=== PATIENT | female | born 1955 | race Caucasian/White ===

== ENCOUNTER → 2017-11-25 | Outpatient (CLI) | payer OTHER ==
--- NOTE | 2017-11-28 12:47 | MM ---
Reason for exam: screening (asymptomatic). Last mammogram was performed 1 year and 2 months ago. History: Patient is postmenopausal. Family history of premenopausal breast cancer in mother at age 47 and breast cancer in aunt. Took progesterone for 20 years 7 months. Physical Findings: A clinical breast exam by your physician is recommended on an annual basis and results should be correlated with mammographic findings. MG Screening Mammo w CAD Bilateral CC and MLO view(s) were taken. Prior study comparison: September 16, 2016, bilateral MG screening mammo w CAD. August 28, 2015, bilateral MG screening mammo w CAD. There are scattered fibroglandular densities. Finding: There are typically benign calcifications in both breasts. ASSESSMENT: Incomplete: need additional imaging evaluation, BI-RAD 0 RECOMMENDATION: Special view mammogram and ultrasound of the left breast. [facility] will attempt to contact patient to return for supplemental views and ultrasound.
== END | disposition home or self-care (01) ==
LOC: RADMAMWWP 13:06
PROVIDERS: ATTEND Family Medicine
DX: Z12.31 Encounter for screening mammogram for malignant neoplasm of breast (principal)
CPT/HCPCS: 77067

== ENCOUNTER → 2017-11-30 | Outpatient (CLI) | payer OTHER ==
--- NOTE | 2017-11-30 14:53 | MM ---
Reason for exam: additional evaluation requested from abnormal screening. Last mammogram was performed less than 1 month ago. History: Patient is postmenopausal. Family history of breast cancer in aunt, premenopausal breast cancer in mother at age 47, and breast cancer in grandmother. Took progesterone for 20 years 7 months. Physical Findings: Nurse did not find any significant physical abnormalities on exam. MG 3D Work Up W/Cad LT Spot compression CC, spot compression MLO, and ML view(s) were taken of the left breast. Prior study comparison: November 25, 2017, bilateral MG screening mammo w CAD. September 16, 2016, bilateral MG screening mammo w CAD. There is no discrete abnormality including area of concern. These results were verbally communicated with the patient and result sheet given to the patient on 11/30/17. ASSESSMENT: Incomplete: need additional imaging evaluation, BI-RAD 0 RECOMMENDATION: Ultrasound of the left breast.
--- NOTE | 2017-11-30 14:54 | USB ---
Reason for exam: additional evaluation requested from abnormal screening. History: Patient is postmenopausal. Family history of breast cancer in aunt, premenopausal breast cancer in mother at age 47, and breast cancer in grandmother. Took progesterone for 20 years 7 months. US Breast Workup Limited LT Left breast ultrasound demonstrates no cystic or solid lesion seen. These results were verbally communicated with the patient and result sheet given to the patient on 11/30/17. ASSESSMENT: Negative, BI-RAD 1 RECOMMENDATION: Return to routine screening mammogram schedule for both breasts. Manage patient on a clinical basis.
== END | disposition home or self-care (01) ==
LOC: RADMAMWWP 13:16
PROVIDERS: ATTEND Family Medicine
DX: R92.8 Other abnormal and inconclusive findings on diagnostic imaging of breast (principal)
CPT/HCPCS: 77065; 76642; G0279

== ENCOUNTER → 2018-12-14 | Outpatient (CLI) | payer OTHER ==
--- NOTE | 2018-12-14 16:53 | BD ---
EXAMINATION TYPE: Axial Bone Density DATE OF EXAM: 12/14/2018 CLINICAL HISTORY: Height: 66 inches Weight: 240 FRAX RISK QUESTIONS: Alcohol (3 or more units per day): no Family History (Parent hip fracture): pelvis bones Glucocorticoids (More than 3mos): no (Ex: prednisone, prednisolone, methylprednisolone, dexamethasone, and hydrocortisone). History of Fracture in Adulthood: yes: foot, left elbow, both wrists, hands Secondary Osteoporosis: 1. Type 1 Diabetes: no, type II 2. Hyperthyroidism: no 3. Menopause before 45: no 4. Malnutrition: no 5. Chronic liver disease: no Rheumatoid Arthritis: no Current Tobacco Use: no RISK FACTORS HISTORY OF: History of Wrist Fracture: yes, both When: age about 34 for left & right wrist in 1994 Surgery to Wrist (left): yes, for carpal tunnel Family History of Osteoporosis: yes, mother Active: yes Diet low in dairy products/other sources of calcium: no Postmenopausal woman: yes Take estrogen and/or progesterone medications: not now How long: progesterone about 20 years Lost more than 2 inches in height since high school: no Frequent falls: no Poor Health: no Hyperparathyroidism: no Adrenal Insufficiency: no MEDICATIONS: Prednisone or other steroids: no Thyroid Medications: yes Which medication: Levothyroxine How Long: over 20 years Osteoporosis Medications: no Additional Medications: insulin , blood pressure med, Metformin Additional History: stroke 2017 EXAM MEASUREMENTS: Bone mineral densitometry was performed using the [email or web address] System. Bone mineral density as measured about the Lumbar spine is: ----- L1-L4(G/cm2): 1.095 T Score Values are as follows: ----- L2: -0.5 ----- L3: -1.0 ----- L4: -0.9 ----- L1-L4: -0.7 Bone mineral density BASELINE Bone mineral density about the R hip (g/cm2): 0.726 Bone mineral density about the L hip (g/cm2): 0.737 T Score values are as follows: -----R Neck: -2.2 -----L Neck: -2.2 -----R Total: -0.9 -----L Total: -0.8 Bone mineral density BASELINE IMPRESSION: Osteopenia (T Score between -2.5 and -1). There is slightly increased risk of fracture and the patient may be considered for treatment. Re-Screen 2-5 years. NOTE: T-SCORE=SD OF THE YOUNG ADULT MEAN.
--- NOTE | 2018-12-17 15:41 | MM ---
Reason for exam: screening (asymptomatic). Last mammogram was performed 1 year ago. History: Patient is postmenopausal. Family history of breast cancer in aunt, premenopausal breast cancer in mother at age 47, and breast cancer in grandmother. Took progesterone for 20 years 7 months. MG Screening Mammo w CAD Bilateral CC and MLO view(s) were taken. Prior study comparison: November 30, 2017, left breast MG 3d work up w/cad LT. November 25, 2017, bilateral MG screening mammo w CAD. There are scattered fibroglandular densities. No significant changes when compared with prior studies. ASSESSMENT: Benign, BI-RAD 2 RECOMMENDATION: Routine screening mammogram of both breasts in 1 year.
== END | disposition home or self-care (01) ==
LOC: RADBDWWP 12:05
PROVIDERS: ATTEND Family Medicine
DX: Z12.31 Encounter for screening mammogram for malignant neoplasm of breast (principal); M85.851 Other specified disorders of bone density and structure, right thigh; M85.852 Other specified disorders of bone density and structure, left thigh; M85.88 Other specified disorders of bone density and structure, other site; Z78.0 Asymptomatic menopausal state
CPT/HCPCS: 77067; 77080

== ENCOUNTER → 2020-01-02 | Outpatient (CLI) | payer OTHER ==
--- NOTE | 2020-01-03 12:07 | MM ---
Reason for exam: screening (asymptomatic). Last mammogram was performed 1 year and 1 month ago. History: Patient is postmenopausal. Family history of breast cancer in aunt, premenopausal breast cancer in mother at age 47, and breast cancer in grandmother. Took progesterone for 20 years 7 months. Physical Findings: A clinical breast exam by your physician is recommended on an annual basis and results should be correlated with mammographic findings. MG Screening Mammo w CAD Bilateral CC and MLO view(s) were taken. Prior study comparison: December 14, 2018, bilateral MG screening mammo w CAD. November 30, 2017, left breast MG 3d work up w/cad LT. There are scattered fibroglandular densities. Benign appearing bilateral calcifications. No suspicious abnormality. No significant changes when compared with prior studies. ASSESSMENT: Benign, BI-RAD 2 RECOMMENDATION: Routine screening mammogram of both breasts in 1 year.
== END | disposition home or self-care (01) ==
LOC: RADMAMWWP 09:57
PROVIDERS: ATTEND Family Medicine
DX: Z12.31 Encounter for screening mammogram for malignant neoplasm of breast (principal)
CPT/HCPCS: 77067

== ENCOUNTER 2021-02-12 15:42 | Emergency (ER) | payer OTHER ==
[2021-02-12] MEDS ORDERED: HYDROmorphone 0.5 MG/0.5 ML SYRINGE IVP STA (16:01)
[2021-02-12] MEDS ORDERED: KETOROLAC 15 MG/ML 1 ML VIAL IVP STA (16:01)
--- NOTE | 2021-02-12 16:58 | XR ---
Result: History: Pain status post fall. Comparison: None available. Technique: 3 views of the left wrist. Findings: There is generalized osteopenia. No acute displaced fracture or dislocation is seen. The visualized osseous structures are in anatomi c alignment. The joint spaces are preserved. There is moderate soft tissue swelling at the dorsal a spect of the distal forearm and wrist Impression: Soft tissue swelling without displaced fracture. If there is persistent pain, consider repeat radiogr aphs in 7-10 days.
--- NOTE | 2021-02-12 17:12 | ED ---
General Adult HPI - General Chief complaint: Extremity Injury, Upper Stated complaint: Fall/arm pain Time Seen by Provider: 02/12/21 15:50 Source: patient, EMS, RN notes reviewed, old records reviewed Mode of arrival: EMS Limitations: no limitations - History of Present Illness Initial comments: This is a 65-year-old female who presents emergency Department complaining of left wrist pain. Patient states she fell at home and hurt her left wrist. Patient states very painful to move or touch. Patient denies any head or neck. Patient denies any chest or back pain patient denies any leg pain. - Related Data Home Medications Medication Instructions Recorded Confirmed Levothyroxine Sodium [Synthroid] 88 mcg PO DAILY 12/05/14 02/12/21 glyBURIDE [Glyburide] 5 mg PO BID-W/MEALS 12/05/14 02/12/21 metFORMIN HCL 1,000 mg PO BID-W/MEALS 12/05/14 02/12/21 Aspirin [[place] Aspirin EC] 81 mg PO W/SUPPER 02/12/21 02/12/21 Bisoprolol-Hctz 10-6.25 mg [Ziac 1 tab PO W/BRKFST 02/12/21 02/12/21 10-6.25 MG] Cholecalciferol [Vitamin D3 (25 25 mcg PO W/LUNCH 02/12/21 02/12/21 Mcg = 1000 Iu)] Clopidogrel Bisulfate [Plavix] 75 mg PO W/BRKFST 02/12/21 02/12/21 Garlic 1 tab PO W/LUNCH 02/12/21 02/12/21 Insulin Glargine,Hum.rec.anlog 55 unit SQ HS 02/12/21 02/12/21 [Lantus Solostar] Insulin Glulisine [Apidra Solostar] 15 unit SQ AC-TID 02/12/21 02/12/21 Magnesium Oxide 400 mg PO W/LUNCH 02/12/21 02/12/21 Allergies Allergy/AdvReac Type Severity Reaction Status Date / Time insulin lispro [From Humalog] Allergy RASH,UNCONTROLLABLE Verified 02/12/21 18:10 DIARRHEA. STATES CAN TAKE NOVOLOG acetaminophen [From Lortab] AdvReac Hallucinati Verified 02/12/21 18:10 ons hydrocodone bitartrate AdvReac Hallucinati Verified 02/12/21 18:10 [From Lortab] ons cholesterol medications Allergy SEVERE Uncoded 02/12/21 18:10 MUSCLE CRAMPING,ITCHING TAPE Allergy SKIN Uncoded 02/12/21 18:10 REDDENED AND BLISTERS Review of Systems ROS Statement: Those systems with pertinent positive or pertinent negative responses have been documented in the HPI. ROS Other: All systems not noted in ROS Statement are negative. Past Medical History Past Medical History: Diabetes Mellitus, Eye Disorder, Hyperlipidemia, Hypertension, Thyroid Disorder Additional Past Medical History / Comment(s): 12/09/14 Pt admitted to floor s/p robotic vaginal hysterectomy and bilateral oophorectomy. 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 Double vision makes. her dizzy. HAVING POST MENOPAUSAL BLEEDING, VARICOSE VEINS,RT HAND INFLAMMED WITH BRUISING TO 3RD & 4TH DIGITS & PALM OF HAND FROM FALL ON Nov. HX PRECANCEROUS UTERINE CELLS History of Any Multi-Drug Resistant Organisms: None Reported Additional Past Surgical History / Comment(s): 12/09/14 Robotic vaginal hyster ectomy and bilateral oophorectomy. D&C's,LT ELBOW SURGERY, LT WRIST CARPEL TUNNEL SURGERY Past Psychological History: No Psychological Hx Reported Smoking Status: Never smoker Past Alcohol Use History: None Reported Past Drug Use History: None Reported General Exam - General Exam Comments Initial Comments: GENERAL: Patient is well-developed and well-nourished. Patient is nontoxic and well- hydrated and is in mild distress. ENT: Neck is soft and supple. No significant lymphadenopathy is noted. Oropharynx is clear. Moist mucous membranes. Neck has full range of motion without eliciting any pain. EYES: The sclera were anicteric and conjunctiva were pink and moist. Extraocular movements were intact and pupils were equal round and reactive to light. Eyelids were unremarkable. SKIN: Skin is clear with no lesions or rashes and otherwise unremarkable. NEUROLOGIC: Patient is alert and oriented x3. Cranial nerves II through XII are grossly intact. Motor and sensory are also intact. Normal speech, volume and content. Symmetrical smile. MUSCULOSKELETAL: Patient's left wrist is ecchymotic and extremely tender to touch. Patient has good sensation to her fingers and motor function as well as good cap refill of all fingers. LYMPHATICS: No significant lymphadenopathy is noted PSYCHIATRIC: Normal psychiatric evaluation. Limitations: no limitations Course Vital Signs 02/12/21 15:44 Temperature 99.0 F Pulse Rate 79 Respiratory 18 Rate Blood Pressure 228/101 O2 Sat by Pulse 95 Oximetry Procedures - Orthopedic Splinting/Casting Injury #1 Side: left Upper Extremity Injury Location: wrist Upper Extremity Immobilizer: volar splint Medical Decision Making - Medical Decision Making X-ray shows no acute abnormality Disposition Clinical Impression: Strain of left wrist Disposition: HOME SELF-CARE Condition: Good Instructions (If sedation given, give patient instructions): Wrist Injury (ED) Is patient prescribed a controlled substance at d/c from ED?: No Referrals: Billy Hughes DO [Doctor of Osteopathic Medicine] - 1-2 days Time of Disposition: 18:22
[2021-02-12] MEDS ORDERED: ONDANSETRON 4 MG/2 ML VIAL IVP STA (17:22)
[2021-02-12 19:07] VITALS: BP 187/82; PULSE 72; RESP 17; TEMP 98.1
== END 2021-02-12 19:07 | disposition home or self-care (01) ==
LOC: EC 15:42
DX: S66.912A Strain of unspecified muscle, fascia and tendon at wrist and hand level, left hand, initial encounter (principal); E11.9 Type 2 diabetes mellitus without complications; E78.5 Hyperlipidemia, unspecified; I10 Essential (primary) hypertension; Y92.009 Unspecified place in unspecified non-institutional (private) residence as the place of occurrence of the external cause; W19.XXXA Unspecified fall, initial encounter; Z79.4 Long term (current) use of insulin; Z79.82 Long term (current) use of aspirin
CPT/HCPCS: 73110; 99283; 29125; 96374; 96375; J2405; J1885; J1170

== ENCOUNTER 2024-08-28 06:26 | Day surgery (SDC) | payer MEDICARE, OTHER ==
[2024-08-28 07:05] VITALS: TEMP 97.7
[2024-08-28 07:20] LABS: Glucose,Whole Blood 278 mg/dL (70-110)
[2024-08-28] MEDS: INSULIN ASPART (NovoLOG) 100 UNIT/ML VIAL SQ ONE (07:25)
[2024-08-28] MEDS: ONDANSETRON 4 MG/2 ML VIAL IVP STA (07:26)
[2024-08-28] MEDS ORDERED: PROPOFOL 10 MG/ML 20 ML VIAL IV ONE (07:27)
[2024-08-28] MEDS: LACTATED RINGERS 1,000 ML IV SCH (07:27)
[2024-08-28] MEDS: IV FLUID CONTINUATION 1,000 ML IV ONE (07:27)
--- NOTE | 2024-08-28 07:47 | P.PCN ---
Date of Procedure: 08/28/24 Procedure(s) Performed: BRIEF HISTORY: Patient is a 69-year-old pleasant white female scheduled for an elective colonoscopy as a part of evaluation by history of colon polyps. PROCEDURE PERFORMED: Colonoscopy with snare polypectomy. PREOPERATIVE DIAGNOSIS: History of colon polyps. IV sedation per Anesthesia. PROCEDURE: After informed consent was obtained, the patient, was brought into the endoscopy unit. IV sedation was administered by Anesthesia under continuous monitoring. Digital rectal examination was normal. Initially the Olympus CF-160 flexible video colonoscope was then inserted in the rectum, gradually advanced into the cecum without any difficulty. Careful examination was performed as the scope was gradually being withdrawn. Ileocecal valve and the appendiceal orifice were visualized and appeared normal. Prep was excellent. Mucosa of the cecum, appeared normal. In the ascending colon there was a 1 submitted broad-based polyp removed by cold snare polypectomy. In the transverse colon there was a 1 cm broad-based polyp removed by hot snare polypectomy. Rest of the ascending colon, transverse colon, descending colon, sigmoid colon, and rectum appeared normal. Scattered sigmoid diverticulosis retroflexion was performed in the rectum and no lesions were seen. The patient tolerated the procedure well. IMPRESSION: 1 cm at base ascending colon polyp status post snare polypectomy 1 cm transverse colon polyp status post snare polypectomy Scattered sigmoid diverticulosis RECOMMENDATIONS: Findings of this examination were discussed with the patient as well as her family. She was advised to follow-up with the biopsy results. If the biopsy reveals adenoma she can have repeat colonoscopy in 3 years..
[2024-08-28 07:59] LABS: Glucose,Whole Blood 254 mg/dL (70-110)
[2024-08-28 08:06] VITALS: BP 144/73; PULSE 71; RESP 16
== END 2024-08-28 08:30 | disposition home or self-care (01) ==
LOC: ORWHC2ENDO 06:26
PROVIDERS: ATTEND Internal Medicine Gastroenterology
DX: Z86.010 Personal history of colon polyps
CPT/HCPCS: 45385; 88305